=== PATIENT | female | born 1950 | race Caucasian/White ===

== ENCOUNTER 2017-06-03 17:19 | Observation (INO) | payer OTHER ==
[~2017-06-03] VITALS: Ht 154.9 cm; Wt 100.4 kg
[~2017-06-03 17:19] MED LIST: ALLO100T PO; ASPI81TA3 PO; ATOR40TA68 PO; CALC1TAB92 PO; FERR325T82 PO; INSU300I SQ; LIRA0.6P2 SQ; MECL25TA2 PO; NIFE30TA2 PO; OMEG-135 PO
[2017-06-03 23:37] LABS: BASOPHILS % 0.1 % (0.0-2.0); EOSINOPHILS # 0.2 10^3/ul (0.0-0.5); EOSINOPHILS % 2.9 % (0.0-7.0); HEMATOCRIT 32.3 % (37.0-47.0); HEMOGLOBIN 10.4 g/dl (12.0-16.0); LYMPHOCYTES # 1.4 10^3/ul (0.8-2.9); MEAN CORPUSCULAR HEMOGLOBIN 29.8 pg (29.0-33.0); MEAN CORPUSCULAR HGB CONC 32.2 g/dl (32.0-37.0); MEAN CORPUSCULAR VOLUME 92.6 fl (82.0-101.0); MEAN PLATELET VOLUME 11.7 fl (7.4-10.4); MONOCYTE # 0.5 10^3/ul (0.3-0.9); MONOCYTES % 5.9 % (0.0-11.0); NEUTROPHIL # 5.8 10^3/ul (1.6-7.5); NEUTROPHILS % 72.7 % (39.0-77.0); PLATELET COUNT 152 10^3/UL (140-415); RED BLOOD COUNT 3.49 10^6/ul (4.20-5.40); RED CELL DISTRIBUTION WIDTH 14.2 % (11.5-14.5); WHITE BLOOD COUNT 7.9 10^3/ul (4.8-10.8)
--- NOTE | 2017-06-03 23:38 | RADRPT ---
PROCEDURE: CT Brain without contrast. CLINICAL INDICATION: Headache. TECHNIQUE: A CT of the brain was performed utilizing axial sections from the skull base through th e vertex without contrast. Multiplanar re-formations were generated. Images were reviewed on a high- resolution PACS workstation. CTDIvol: 43.05 mGy. DLP: 720.23 mGy-cm. One or more of the following dose reduction techniques were used: - Automated exposure control. - Adjustment of the mA and/or kV according to patient size. - Use of iterative reconstruction technique. COMPARISON: None available FINDINGS: There is mild generalized volume loss. No hydrocephalus is seen. There is no mass effect. No acute intracranial hemorrhage is identified. There is no extra-axial collection. No CT evidence of acute infarction is identified. Small chronic infarction is identified in the inferior left cerebellar he misphere. There is patchy low attenuation in the supratentorial white matter, a nonspecific finding which most likely represents the sequela of mild chronic microvascular ischemic disease. There are mild atherosclerotic arterial calcifications. There is no significant mucosal disease in the paranasal sinuses. The visualized mastoid air cells a re clear. The ossesous structures are unremarkable. The extracranial soft tissues are unremarkable. IMPRESSION: 1. No acute intracranial pathology. 2. Mild generalized volume loss. 3. Mild chronic microvascular ischemic changes. 4. Small chronic infarction in the inferior left cerebellar hemisphere. 5. Atherosclerotic arterial calcifications. RPTAT: HTAR .Osvaldo Taylor MD, MD Date Time Electronically viewed and signed by .Osvaldo Taylor MD, MD on 06/03/2017 23:38 .R/
--- NOTE | 2017-06-03 23:40 | RADRPT ---
PROCEDURE: Chest. CLINICAL INDICATION: Chest pain. TECHNIQUE: Single frontal view of the chest was obtained. COMPARISON: 06/25/2016. FINDINGS: The cardiac silhouette is within normal limits. The aortic arch is unremarkable. There is no focal consolidation, vascular congestion or pleural effusion. There is no pneumothorax. IMPRESSION: No evidence for active cardiopulmonary disease. .Praneeth White MD, Date Time Electronically viewed and signed by .Praneeth White MD, on 06/03/2017 23:40 .T/
[2017-06-03 23:59] LABS: INR 1.02; PROTIME 13.4 Sec (12.2-14.2)
[2017-06-04] VITALS (13 sets, daily range): BP systolic 105–168; BP diastolic 59–70; PULSE 71–76; RESP 19–20; Ht 154.9 cm; Wt 100.4 kg
[2017-06-04] LABS: PARTIAL THROMBOPLASTIN TIME 26.9 Sec (25.0-35.0)
[2017-06-04 00:02] LABS: ALANINE AMINOTRANSFERASE 41 IU/L (13-69); ALBUMIN 3.8 g/dl (3.3-4.9); ALBUMIN/GLOBULIN RATIO 1.11; ALKALINE PHOSPHATASE 77 IU/L (42-121); ANION GAP 19 (8-16); ASPARTATE AMINO TRANSFERASE 22 IU/L (15-46); BILIRUBIN,INDIRECT 0.2 mg/dl (0-1.1); BILIRUBIN,TOTAL 0.2 mg/dl (0.2-1.3); BLOOD UREA NITROGEN 43 mg/dl (7-20); CALCIUM 8.6 mg/dl (8.4-10.2); CARBON DIOXIDE 29 mmol/L (21-31); CHLORIDE 102 mmol/L (97-110); GLUCOSE 187 mg/dl (70-220); POTASSIUM 3.3 mmol/L (3.5-5.1); SODIUM 147 mmol/L (135-144); TOTAL PROTEIN 7.2 g/dl (6.1-8.1)
[2017-06-04 00:23] LABS: TROPONIN-I < 0.012 ng/ml (0.00-0.12)
[2017-06-04] MEDS ORDERED: morphine 2 MG INJ IV PRN (02:00)
[2017-06-04] MEDS ORDERED: ONDANSETRON 4 MG INJ IV PRN (02:00)
--- NOTE | 2017-06-04 02:06 | ERA ---
ER Documentation Chief Complaint Date/Time DATE: 06/04/17 TIME: 02:05 Chief Complaint bilat hand numbness and toung numbness x 3 weeks HPI 37-year-old female comes in with generalized weakness getting progressively worse over the past 2 days. Also complaining of bilateral hand numbness and tongue numbness. Patient also says she has been falling more frequently at home and does not feel stable on her feet. Denies any recent or remote head trauma. Denies any focal neurologic complaints otherwise. No visual acuity changes. ROS All systems reviewed and are negative except as per history of present illness. Medications Home Meds Active Scripts Liraglutide (Victoza 3-Severiano) 0.6 Mg/0.1 Ml Pen.injctr, 1.8 MG SQ DAILY for 30 Days, #3 SYR 5 Refills Prov:ADAL ARCE MD 06/28/16 Insulin Glargine,Hum.rec.anlog (Daniella Solostar) 300 Unit/1 Ml Insuln.pen, 32 UNIT SQ QHS for 30 Days, #1 BOX 5 Refills Prov:ADAL ARCE MD 06/28/16 Nifedipine (Procardia Xl) 30 Mg Tab.er.24, 30 MG PO DAILY for 30 Days, #30 TAB 5 Refills Prov:ADAL ARCE MD 06/28/16 Meclizine Hcl* (Antivert*) 25 Mg Tablet, 25 MG PO TID Y for VERTIGO for 30 Days , #90 TAB 5 Refills Prov:ADAL ARCE MD 06/28/16 Atorvastatin* (Atorvastatin*) 40 Mg Tablet, 40 MG PO HS for 30 Days, #30 TAB 5 Refills Prov:ADAL ARCE MD 06/28/16 Allopurinol* (Allopurinol*) 100 Mg Tablet, 100 MG PO DAILY for 30 Days, #30 TAB 5 Refills Prov:ADAL ARCE MD 06/28/16 Reported Medications Ferrous Sulfate (CAMPBELL-TIME) 325 Mg Tablet, 325 MG PO DAILY 05/13/14 Aspirin (Aspirin) 81 Mg Chew, 81 MG PO DAILY, TAB.CHEW 05/13/14 Calcium Carbonate/Vitamin D3 (Oyster Shell 500 Mg + Vit D Tb) 1 Tab Tablet, 1 TAB PO DAILY 05/13/14 Fish Oil* (Fish Oil*) 1,000 Mg Cap, 1000 MG PO BID, CAP 7/18/14 Allergies Allergies: Coded Allergies: No Known Allergy (Unverified , 06/03/17) PMhx/Soc History of Surgery: No Anesthesia Reaction: No Hx Neurological Disorder: No Hx Respiratory Disorders: No Hx Cardiac Disorders: Yes (HTN; HIGH CHOLESTEROL) Hx Psychiatric Problems: No Hx Miscellaneous Medical Probl: Yes (HTN,CKD,GI BLEED, INCREASED CHOLESTEROL) Hx Alcohol Use: No Hx Substance Use: No Hx Tobacco Use: No Smoking Status: Never smoker Physical Exam Vitals Vital Signs Date Time Temp Pulse Resp B/P Pulse Ox O2 Delivery O2 Flow Rate FiO2 06/04/17 01:59 71 17 121/55 94 Room Air 06/04/17 00:15 74 17 118/52 96 Room Air 06/03/17 22:25 80 17 133/56 96 Room Air 06/03/17 17:24 99.7 77 20 124/60 93 Physical Exam Const: [] Head: Atraumatic Eyes: Normal Conjunctiva ENT: Normal External Ears, Nose and Mouth. Neck: Full range of motion..~ No meningismus. Resp: Clear to auscultation bilaterally Cardio: Regular rate and rhythm, no murmurs Abd: Soft, non tender, non distended. Normal bowel sounds Skin: No petechiae or rashes Back: No midline or flank tenderness Ext: No cyanosis, or edema Neur: Awake and alert. Mild ataxia noted on the heel to rushing and finger to nose. Psych: Normal Mood and Affect Result Diagram: 06/03/17 2310 06/03/17 2310 Results 24 hrs Laboratory Tests Test 06/03/17 20:17 06/03/17 23:10 Bedside Glucose 173mg/dL White Blood Count 7.910^3/ul Red Blood Count 3.4910^6/ul Hemoglobin 10.4g/dl Hematocrit 32.3% Mean Corpuscular Volume 92.6fl Mean Corpuscular Hemoglobin 29.8pg Mean Corpuscular Hemoglobin Concent 32.2g/dl Red Cell Distribution Width 14.2% Platelet Count 56233^3/UL Mean Platelet Volume 11.7fl Neutrophils % 72.7% Lymphocytes % 18.0% Monocytes % 5.9% Eosinophils % 2.9% Basophils % 0.1% Nucleated Red Blood Cells % 0.0/100WBC Neutrophils # 5.810^3/ul Lymphocytes # 1.410^3/ul Monocytes # 0.510^3/ul Eosinophils # 0.210^3/ul Basophils # 0.010^3/ul Nucleated Red Blood Cells # 0.010^3/ul Prothrombin Time 13.4Sec Prothrombin Time Ratio 1.0 INR International Normalized Ratio 1.02 Activated Partial Thromboplast Time 26.9Sec Sodium Level 147mmol/L Potassium Level 3.3mmol/L Chloride Level 102mmol/L Carbon Dioxide Level 29mmol/L Anion Gap 19 Blood Urea Nitrogen 43mg/dl Creatinine 1.90mg/dl Glucose Level 187mg/dl Lactic Acid Level 1.4mmol/L Calcium Level 8.6mg/dl Total Bilirubin 0.2mg/dl Direct Bilirubin 0.00mg/dl Indirect Bilirubin 0.2mg/dl Aspartate Amino Transf (AST/SGOT) 22IU/L Alanine Aminotransferase (ALT/SGPT) 41IU/L Alkaline Phosphatase 77IU/L Troponin I < 0.012ng/ml Total Protein 7.2g/dl Albumin 3.8g/dl Globulin 3.40g/dl Albumin/Globulin Ratio 1.11 Procedures/MDM EKG: Rate/Rhythm: Normal Sinus Rhythm QRS, ST, T-waves: No changes consistent w/ acute ischemia Impression: No evidence of ischemia or arrhythmia Chest X-ray 1V Interpreted by me: Soft Tissue: No acute abnormalities Bones: No acute abnormalities Mediastinum/Cardiac Silhouette/Lungs: No acute abnormalities Medical decision-makin-year-old female with evidence of ataxia generalized weakness. Patient will be admitted to Dr. Marquez for further evaluation and management. Departure Diagnosis: Primary Impression: Ataxia Additional Impression: Weakness Condition: Serious TERE BERNAL Jun 04, 2017 02:06
[2017-06-04] MEDS ORDERED: GLUCOSE GEL 15 GRAM TUBE BUCCAL PRN (02:30)
[2017-06-04] MEDS ORDERED: GLUCAGON 1 MG INJ IM PRN (02:30)
[2017-06-04] MEDS ORDERED: GLUCOSE GEL 15 GRAM TUBE PO PRN ×2 (02:30)
[2017-06-04] MEDS ORDERED: DEXTROSE 50% 50 ML SYRINGE IV PRN ×2 (02:30)
[2017-06-04] MEDS ORDERED: INSULIN ASPART [NOVOLOG] 3 ML PEN SC SCH (05:00)
[2017-06-04] MEDS: ACCU-CHEK XX SCH (05:13)
[2017-06-04] MEDS: POTASSIUM CHLORIDE (SR) 20 MEQ TAB PO SCH ×2 (05:15→07:14)
[2017-06-04] MEDS: SOD CHLORIDE 0.45% 1,000 ML IV SCH ×3 (05:23→21:06)
[2017-06-04 07:23] LABS: ADD UMIC YES; UR ASCORBIC ACID NEGATIVE (NEGATIVE); UR BACTERIA FEW /HPF (NONE SEEN); UR BILIRUBIN (Dip) NEGATIVE (NEGATIVE); UR BLOOD (Dip) NEGATIVE (NEGATIVE); UR CLARITY SLIGHTLY CLOUDY (CLEAR); UR COLOR YELLOW (YELLOW); UR GLUCOSE (Dip) 1+ mg/dL (NEGATIVE); UR KETONES (Dip) NEGATIVE (NEGATIVE); UR LEUKOCYTE ESTERASE (Dip) 1+ Leu/ul (NEGATIVE); UR NITRITE (Dip) NEGATIVE (NEGATIVE); UR RBC 2 /HPF (0-5); UR SPECIFIC GRAVITY (Dip) 1.014 (1.003-1.030); UR SQUAMOUS EPITHELIAL CELL FEW /HPF (FEW); UR TOTAL PROTEIN (Dip) NEGATIVE (NEGATIVE); UR UROBILINOGEN (Dip) NEGATIVE (NEGATIVE)
[2017-06-04] MEDS: INSULIN ASPART [NOVOLOG] 3 ML PEN SC SCH ×4 (08:00→21:00)
[2017-06-04] MEDS: NIFEdipine (XL) 30 MG TAB PO SCH (08:42)
[2017-06-04] MEDS: ALLOPURINOL 100 MG TAB PO SCH (08:42)
[2017-06-04] MEDS: CALCIUM/VITAMIN D (500/200) TAB PO SCH (08:42)
[2017-06-04] MEDS: ASPIRIN 81 MG TAB PO SCH (08:42)
[2017-06-04] MEDS: FERROUS SULFATE (EC) 325 MG TAB PO SCH (08:42)
[2017-06-04] MEDS: FISH OIL 1,000 MG CAP PO SCH ×2 (08:42→21:00)
[2017-06-04] MEDS ORDERED: INSULIN GLARGINE [LANtus] 3 ML PEN SC SCH (09:00)
[2017-06-04] MEDS: INSULIN GLARGINE [LANtus] 3 ML PEN SC SCH ×2 (09:00→12:04)
[2017-06-04] MEDS ORDERED: NON-FORMULARY/PATIENT OWN MED (Liraglutide (Victoza 3-Pak) 1.8 MG) SQ SCH (09:00)
[2017-06-04] MEDS: [UNRECOGNIZED DRUG - REMARK] XX SCH ×2 (09:52→16:32)
[2017-06-04] MEDS: ACETAMINOPHEN 325 MG TAB PO PRN (12:08)
--- NOTE | 2017-06-04 14:59 | HP ---
Date/Time of Note Date/Time of Note DATE: 06/04/17 TIME: 14:27 Assessment/Plan VTE Prophylaxis VTE Prophylaxis Intervention: SCD's Lines/Catheters IV [facility] (from [facility] Peripheral IV Urinary Cath still in place: No Assessment/Plan Assessment/Plan 67-year-old female with: 1. Extremity weakness upper and lower, questionable gait issues, old small left cerebellar infarct on CAT scan of the head. Patient admitted for rule out acute CVA, MRI of the brain pending. Based on her symptoms also MRI of the cervical/thoracic/lumbar spine has been ordered overnight. Check TSH, free T4 Continue aspirin, statins, blood pressure control, blood glucose control Continue physical therapy 2. Diabetes mellitus: Check hemoglobin A1c, continue current insulin regimen, will adjust as needed 3. 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 Potassium was repleted overnight, check BMP today. 4. Hypertension: Continue outpatient medications 5. Hyperlipidemia: Statin therapy, check fasting lipid panel in a.m. 6. Chronic anemia: Monitor hemoglobin level, continue iron sulfate supplements. 7. Morbid obesity: Lifestyle modification Prophylaxis: Pepcid for GI prophylaxis, SCDs for DVT prophylaxis Disposition: Patient on observation while awaiting for MRI results, physical therapy to be continued, follow-up on laboratory data in a.m. HPI/ROS Admit Date/Time Admit Date/Time Jun 04, 2017 at 02:02 Hx of Present Illness Chief complaint: Weakness History of presenting illness: This is a 67-year-old female with a history of diabetes mellitus, morbid obesity, chronic anemia, chronic kidney disease probably stage II-III, hyperlipidemia, hypertension apparently with ongoing history of chronic dizziness of this for the past year and occasional who presented in the emergency department with complaint of increasing upper extremity and lower extremity weakness for the past month. Patient reports that he has gotten much worse and this past Friday she did fall due to severe weakness of her lower extremities. She denies any fevers or chills, no nausea or vomiting, no diarrhea or constipation. She reports dysuria and urinary frequency. She saw a microfiche camera operator couple of months ago for evaluation for chronic kidney disease and is due to follow-up with nephrology in 4 months. She denies any previous history of cerebrovascular disease or accidents. She denies any previous coronary artery disease. She reports these episodes of numbness especially of her feet and hands that could be consistent with neuropathy related to diabetes versus neuropathy. MRIs of her cervical/thoracic/lumbar spine pending along with MRI of the head. Additional laboratory workup will also be done. She did ambulate with physical therapy this morning a little bit and was fairly steady but still complaining of numbness and loss of balance. She is admitted to telemetry observation. ROS Constitutional: fatigue Eyes: other (Blurry vision occasionally) ENT: no complaints Respiratory: no complaints Cardiovascular: no complaints Gastrointestinal: no complaints Genitourinary: dysuria, other (Frequency) Musculoskeletal: no complaints Skin: no complaints Neurologic: focal-weakness (Upper extremities, lower extremities) Endocrine: no complaints Psychological: no complaints Immunologic: no complaints PMH/Family/Social Past Medical History Chronic anemia likely related to chronic kidney Medical History: diabetes, high cholesterol, hypertension, renal disease (CKD 2 -3) Past Surgical History Past Surgical Hx: cholecystectomy, other (Status post hysterectomy) Family History Significant Family History: no pertinent family hx Social History Alcohol Use: none Smoking Status: Former smoker (At least 40 years ago) Drug Use: none Exam/Review of Systems Vital Signs Vitals Vital Signs Date Time Temp Pulse Resp B/P Pulse Ox O2 Delivery O2 Flow Rate FiO2 06/04/17 13:32 76 06/04/17 11:43 97.9 19 151/70 96 06/04/17 04:37 Room Air Intake and Output 06/03/17 06/03/17 06/04/17 15:00 23:00 07:00 Intake Total 390 ml Balance 390 ml Exam Constitutional: alert, oriented, other (Obese), well developed Respiratory: clear to auscultation, normal air movement Cardiovascular: nl pulses, regular rate and rhythm Gastrointestinal: non-tender, soft Musculoskeletal: nl extremities to inspection Extremities: normal pulses, other (No edema, clubbing or cyanosis) 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, focal weakness (Weakness upper and lower extremity 4 out of 5), nl mental status, nl speech Labs Result Diagram: 06/03/17 2310 06/03/17 2310 Medications Medications Home medications: See medication reconciliation on admission Current Medications Diagnostic Test (Pha) (Accu-Chek) 1 ea XX Last administered on 06/04/17t 05: 13; Admin Dose 1 EA; Start 06/04/17 at 02:00 Acetaminophen (Tylenol Tab) 650 mg Q4H PRN PO pain/fever Last administered on 12:08; Admin Dose 650 MG; Start 06/04/17 at 02:00 Ondansetron HCl (Zofran Inj) 4 mg Q4H PRN IV nausea; Start 06/04/17 at 02:00 Morphine Sulfate 2 mg 2 mg Q2H PRN IV pain; Start 06/04/17 at 02:00 Sodium Chloride (1/2 NS) 1,000 ml @ 100 mls/hr Q10H IV Last administered on 05:23; Admin Dose 100 MLS/HR; Start 06/04/17 at 02:00 Allopurinol (Zyloprim) 100 mg DAILY PO Last administered on 06/04/17 08:42; Admin Dose 100 MG; Start 06/04/17 at 09:00 Aspirin (Aspirin) 81 mg DAILY PO Last administered on 06/04/17 08:42; Admin Dose 81 MG; Start 06/04/17 at 09:00 Atorvastatin Calcium (Lipitor) 40 mg HS PO ; Start 06/04/17 at 21:00 Calcium/Vitamin D (Oyster Shell/ Vit-D (500/200)) 1 tab DAILY PO Last administered on 06/04/17 08:42; Admin Dose 1 TAB; Start 06/04/17 at 09:00 Ferrous Sulfate (Ferrous Sulfate (Ec)) 325 mg DAILY PO Last administered on 06/04 08:42; Admin Dose 325 MG; Start 06/04/17 at 09:00 Fish Oil (Fish Oil) 1,000 mg BID PO Last administered on 06/04/17 08:42; Admin Dose 1,000 MG; Start 06/04/17 at 09:00 Nifedipine (Procardia Xl) 30 mg DAILY PO Last administered on 06/04/17 08:42; Admin Dose 30 MG; Start 06/04/17 at 09:00 Miscellaneous Information 1.8 mg DAILY SQ ; Start 06/04/17 at 09:00; Status UNV Miscellaneous Information 1 ea NOTE XX ; Start 06/04/17 at 02:30 Glucose (Glutose) 15 gm Q15M PRN PO DECREASED GLUCOSE; Start 06/04/17 at 02:30 Glucose (Glutose) 22.5 gm Q15M PRN PO DECREASED GLUCOSE; Start 06/04/17 at 02:30 Dextrose (D50w Syringe) 25 ml Q15M PRN IV DECREASED GLUCOSE; Start 06/04/17 at 02:30 Dextrose (D50w Syringe) 50 ml Q15M PRN IV DECREASED GLUCOSE; Start 06/04/17 at 02:30 Glucagon (Glucagen) 1 mg Q15M PRN IM DECREASED GLUCOSE; Start 06/04/17 at 02:30 Glucose (Glutose) 15 gm Q15M PRN BUCCAL DECREASED GLUCOSE; Start 06/04/17 at 02: 30 Miscellaneous Information (*Order Clarification Bulletin) MEDICATION REQUIRES CLARIFICATI... Q8H XX Last administered on 06/04/17 09:52; Admin Dose 1 EA; Start 06/04/17 at 09:00 Insulin Glargine (Lantus) 24 unit DAILY SC Last administered on 06/04/17 12:04 ; Admin Dose 24 UNIT; Start 06/04/17 at 08:00 Procedures Procedures PROCEDURE: CT Brain without contrast. CLINICAL INDICATION: Headache. TECHNIQUE: A CT of the brain was performed utilizing axial sections from the skull base through the vertex without contrast. Multiplanar re-formations were generated. Images were reviewed on a high-resolution PACS workstation. CTDIvol: 43.05 mGy. DLP: 720.23 mGy-cm. One or more of the following dose reduction techniques were used: - Automated exposure control. - Adjustment of the mA and/or kV according to patient size. - Use of iterative reconstruction technique. COMPARISON: None available FINDINGS: There is mild generalized volume loss. No hydrocephalus is seen. There is no mass effect. No acute intracranial hemorrhage is identified. There is no extra- axial collection. No CT evidence of acute infarction is identified. Small chronic infarction is identified in the inferior left cerebellar hemisphere. There is patchy low attenuation in the supratentorial white matter, a nonspecific finding which most likely represents the sequela of mild chronic microvascular ischemic disease. There are mild atherosclerotic arterial calcifications. There is no significant mucosal disease in the paranasal sinuses. The visualized mastoid air cells are clear. The ossesous structures are unremarkable. The extracranial soft tissues are unremarkable. IMPRESSION: 1. No acute intracranial pathology. 2. Mild generalized volume loss. 3. Mild chronic microvascular ischemic changes. 4. Small chronic infarction in the inferior left cerebellar hemisphere. 5. Atherosclerotic arterial calcifications. PROCEDURE: Chest. CLINICAL INDICATION: Chest pain. TECHNIQUE: Single frontal view of the chest was obtained. COMPARISON: 06/25/2016. FINDINGS: The cardiac silhouette is within normal limits. The aortic arch is unremarkable. There is no focal consolidation, vascular congestion or pleural effusion. There is no pneumothorax. IMPRESSION: No evidence for active cardiopulmonary disease. .Praneeth White MD, Date Time Electronically viewed and signed by .Praneeth White MD, MD on 06/03/2017 23:40 IVIS MIN Jun 04, 2017 14:38
[2017-06-04 15:02] LABS: CALCIUM 8.7 mg/dl (8.4-10.2); CREATININE 1.22 mg/dl (0.44-1.00); MAGNESIUM 1.4 mg/dl (1.7-2.5); PHOSPHORUS 2.5 mg/dl (2.5-4.9); POTASSIUM 4.1 mmol/L (3.5-5.1)
[2017-06-04] MEDS: FAMOTIDINE 20 MG TAB PO SCH (16:35)
[2017-06-04] MEDS: ATORVASTATIN 40 MG TAB PO SCH (21:00)
[2017-06-05] VITALS (11 sets, daily range): BP systolic 117–142; BP diastolic 56–65; PULSE 67–75; RESP 18–20
[2017-06-05] MEDS: [UNRECOGNIZED DRUG - REMARK] XX SCH ×2 (01:36→08:40)
[2017-06-05] MEDS: ACCU-CHEK XX SCH (01:37)
[2017-06-05] MEDS: SOD CHLORIDE 0.45% 1,000 ML IV SCH ×2 (06:16→16:53)
[2017-06-05 07:35] LABS: BASOPHILS % 0.4 % (0.0-2.0); EOSINOPHILS # 0.3 10^3/ul (0.0-0.5); EOSINOPHILS % 6.3 % (0.0-7.0); HEMATOCRIT 29.5 % (37.0-47.0); HEMOGLOBIN 9.4 g/dl (12.0-16.0); LYMPHOCYTES # 2.1 10^3/ul (0.8-2.9); LYMPHOCYTES % 43.4 % (15.0-51.0); MEAN CORPUSCULAR HEMOGLOBIN 29.5 pg (29.0-33.0); MEAN CORPUSCULAR HGB CONC 31.9 g/dl (32.0-37.0); MEAN CORPUSCULAR VOLUME 92.5 fl (82.0-101.0); MEAN PLATELET VOLUME 11.7 fl (7.4-10.4); MONOCYTE # 0.4 10^3/ul (0.3-0.9); MONOCYTES % 7.4 % (0.0-11.0); NEUTROPHILS % 42.1 % (39.0-77.0); PLATELET COUNT 138 10^3/UL (140-415); RED BLOOD COUNT 3.19 10^6/ul (4.20-5.40); RED CELL DISTRIBUTION WIDTH 14.2 % (11.5-14.5); WHITE BLOOD COUNT 4.8 10^3/ul (4.8-10.8)
[2017-06-05 07:45] LABS: CALCIUM 8.4 mg/dl (8.4-10.2); CREATININE 1.1 mg/dl (0.44-1.00); POTASSIUM 3.9 mmol/L (3.5-5.1)
[2017-06-05 07:52] LABS: MAGNESIUM 1.3 mg/dl (1.7-2.5); PHOSPHORUS 2.6 mg/dl (2.5-4.9)
[2017-06-05 08:15] LABS: CHOL/HDL RATIO 4.3 RATIO
[2017-06-05] MEDS: ASPIRIN 81 MG TAB PO SCH (08:39)
[2017-06-05] MEDS: ACETAMINOPHEN 325 MG TAB PO PRN (08:39)
[2017-06-05] MEDS: FAMOTIDINE 20 MG TAB PO SCH (08:39)
[2017-06-05] MEDS: ALLOPURINOL 100 MG TAB PO SCH (08:39)
[2017-06-05] MEDS: CALCIUM/VITAMIN D (500/200) TAB PO SCH (08:39)
[2017-06-05] MEDS: FISH OIL 1,000 MG CAP PO SCH ×2 (08:39→20:24)
[2017-06-05] MEDS: NIFEdipine (XL) 30 MG TAB PO SCH (08:39)
[2017-06-05] MEDS: FERROUS SULFATE (EC) 325 MG TAB PO SCH (08:39)
[2017-06-05] MEDS: INSULIN ASPART [NOVOLOG] 3 ML PEN SC SCH ×4 (08:44→20:27)
[2017-06-05] MEDS: INSULIN GLARGINE [LANtus] 3 ML PEN SC SCH (08:47)
--- NOTE | 2017-06-05 11:34 | PN ---
Date/Time of Note Date/Time of Note DATE: 06/05/17 TIME: 11:24 Assessment/Plan VTE Prophylaxis VTE Prophylaxis Intervention: SCD's Lines/Catheters IV Catheter Type (from Nrs): Peripheral IV Urinary Cath still in place: No Assessment/Plan Assessment/Plan 67-year-old female with: 1. Extremity weakness upper and lower, questionable gait issues, old small left cerebellar infarct on CAT scan of the head. Patient admitted for rule out acute CVA, MRI of the brain pending. Based on her symptoms also MRI of the cervical/thoracic/lumbar spine has been ordered overnight and still pending as of this morning, at this point discharge planning is pending MRIs. TSH, free T4 within normal Continue aspirin, statins, blood pressure control, blood glucose control Continue physical therapy 2. Diabetes mellitus: A1c 7.1, continue current insulin regimen, will adjust as needed 3. 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 Continue IV fluids, recheck BMP tomorrow, repleting magnesium, recheck electrolytes in a.m. 4. Hypertension: Continue outpatient medications 5. Hyperlipidemia: Continue statin. 6. Chronic anemia: Stable H&H, continue iron sulfate supplements. 7. Morbid obesity: Lifestyle modification Prophylaxis: Pepcid for GI prophylaxis, SCDs for DVT prophylaxis Disposition: Discharge planning pending MRIs, continue physical therapy. Subjective 24 Hr Interval Summary Free Text/Dictation Patient feels much better today, per nurse's note she has been ambulatory steady to the restroom, physical therapy seen patient. MRIs ordered are still pending. Otherwise workup within normal so far. Patient requesting a dietary consult. 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, nl mental status, nl speech, nl strength Results Result Diagram: 06/05/17 0637 06/05/17 0637 Results 24 hrs Laboratory Tests Test 06/04/17 12:00 06/04/17 14:27 06/04/17 14:50 06/04/17 16:33 Bedside Glucose 187 137 Sodium Level 144 Potassium Level 4.1 Chloride Level 103 Carbon Dioxide Level 28 Anion Gap 17 H Blood Urea Nitrogen 30 #H Creatinine 1.22 H Glucose Level 180 Calcium Level 8.7 Phosphorus Level 2.5 Magnesium Level 1.4 L Thyroid Stimulating Hormone (TSH) 0.202 L Free Thyroxine 1.13 Test 06/04/17 21:04 06/05/17 06:37 06/05/17 08:37 Bedside Glucose 159 147 White Blood Count 4.8 # Red Blood Count 3.19 L Hemoglobin 9.4 L Hematocrit 29.5 L Mean Corpuscular Volume 92.5 Mean Corpuscular Hemoglobin 29.5 Mean Corpuscular Hemoglobin Concent 31.9 L Red Cell Distribution Width 14.2 Platelet Count 138 L Mean Platelet Volume 11.7 H Neutrophils % 42.1 Lymphocytes % 43.4 Monocytes % 7.4 Eosinophils % 6.3 Basophils % 0.4 Nucleated Red Blood Cells % 0.0 Neutrophils # 2.0 Lymphocytes # 2.1 Monocytes # 0.4 Eosinophils # 0.3 Basophils # 0.0 Nucleated Red Blood Cells # 0.0 Sodium Level 146 H Potassium Level 3.9 Chloride Level 105 Carbon Dioxide Level 28 Anion Gap 17 H Blood Urea Nitrogen 23 H Creatinine 1.10 H Glucose Level 152 Hemoglobin A1c 7.1 H Calcium Level 8.4 Phosphorus Level 2.6 Magnesium Level 1.3 L Triglycerides Level 217 H Cholesterol Level 104 LDL Cholesterol, Calculated 37 HDL Cholesterol 24 L Cholesterol/HDL Ratio 4.3 Medications Medications Current Medications Diagnostic Test (Pha) (Accu-Chek) 1 ea 02 XX Last administered on 06/04/17 05: 13; Admin Dose 1 EA; Start 06/04/17 at 02:00 Acetaminophen (Tylenol Tab) 650 mg Q4H PRN PO pain/fever Last administered on 08:39; Admin Dose 650 MG; Start 06/04/17 at 02:00 Ondansetron HCl (Zofran Inj) 4 mg Q4H PRN IV nausea; Start 06/04/17 at 02:00 Morphine Sulfate 2 mg 2 mg Q2H PRN IV pain; Start 06/04/17 at 02:00 Sodium Chloride (1/2 NS) 1,000 ml @ 100 mls/hr Q10H IV Last administered on 06:16; Admin Dose 100 MLS/HR; Start 06/04/17 at 02:00 Allopurinol (Zyloprim) 100 mg DAILY PO Last administered on 06/05/17 08:39; Admin Dose 100 MG; Start 06/04/17 at 09:00 Aspirin (Aspirin) 81 mg DAILY PO Last administered on 06/05/17 08:39; Admin Dose 81 MG; Start 06/04/17 at 09:00 Atorvastatin Calcium (Lipitor) 40 mg HS PO Last administered on 06/04/17 21:00 ; Admin Dose 40 MG; Start 06/04/17 at 21:00 Calcium/Vitamin D (Oyster Shell/ Vit-D (500/200)) 1 tab DAILY PO Last administered on 06/05/17 08:39; Admin Dose 1 TAB; Start 06/04/17 at 09:00 Ferrous Sulfate (Ferrous Sulfate (Ec)) 325 mg DAILY PO Last administered on 08:39; Admin Dose 325 MG; Start 06/04/17 at 09:00 Fish Oil (Fish Oil) 1,000 mg BID PO Last administered on 06/05/17 08:39; Admin Dose 1,000 MG; Start 06/04/17 at 09:00 Nifedipine (Procardia Xl) 30 mg DAILY PO Last administered on 06/05/17 08:39; Admin Dose 30 MG; Start 06/04/17 at 09:00 Miscellaneous Information 1.8 mg DAILY SQ ; Start 06/04/17 at 09:00; Status UNV Miscellaneous Information 1 ea NOTE XX ; Start 06/04/17 at 02:30 Glucose (Glutose) 15 gm Q15M PRN PO DECREASED GLUCOSE; Start 06/04/17 at 02:30 Glucose (Glutose) 22.5 gm Q15M PRN PO DECREASED GLUCOSE; Start 06/04/17 at 02:30 Dextrose (D50w Syringe) 25 ml Q15M PRN IV DECREASED GLUCOSE; Start 06/04/17 at 02:30 Dextrose (D50w Syringe) 50 ml Q15M PRN IV DECREASED GLUCOSE; Start 06/04/17 at 02:30 Glucagon (Glucagen) 1 mg Q15M PRN IM DECREASED GLUCOSE; Start 06/04/17 at 02:30 Glucose (Glutose) 15 gm Q15M PRN BUCCAL DECREASED GLUCOSE; Start 06/04/17 at 02: 30 Miscellaneous Information (*Order Clarification Bulletin) MEDICATION REQUIRES CLARIFICATI... Q8H XX Last administered on 06/05/17 08:40; Admin Dose 1 EA; Start 06/04/17 at 09:00 Insulin Glargine (Lantus) 24 unit DAILY SC Last administered on 06/05/17 08:47 ; Admin Dose 24 UNIT; Start 06/04/17 at 08:00 Famotidine (Pepcid) 20 mg DAILY PO Last administered on 06/05/17 08:39; Admin Dose 20 MG; Start 06/04/17 at 16:00 IVIS MIN Jun 05, 2017 11:34
[2017-06-05] MEDS ORDERED: MAGNESIUM SULFATE 4 GM/100 ML 100 ML IVPB ONE (14:00)
[2017-06-05] MEDS: ATORVASTATIN 40 MG TAB PO SCH (20:24)
[2017-06-06] VITALS (10 sets, daily range): BP systolic 126–149; BP diastolic 58–82; PULSE 66–73; RESP 16–20
[2017-06-06] MEDS: ACETAMINOPHEN 325 MG TAB PO PRN ×2 (00:30→08:44)
[2017-06-06] MEDS: ACCU-CHEK XX SCH (01:56)
[2017-06-06] MEDS: SOD CHLORIDE 0.45% 1,000 ML IV SCH (04:33)
--- NOTE | 2017-06-06 06:40 | RADRPT ---
PROCEDURE: MR Brain without contrast. CLINICAL INDICATION: Numbness. Evaluate for possible demyelinating disease. TECHNIQUE: Sagittal and axial T1 weighted, axial T2 weighted, coronal GRE, axial diffusion weighte d with ADC mapping, and axial FLAIR imaging without contrast. COMPARISON: CT from 06/03/2017 FINDINGS: No diffusion weighted abnormalities are seen to suggest the presence of acute ischemia or recent inf arct. No hypointense signal abnormalities are seen on the GRE images to suggest the presence of blo od degradation products. There is no evidence of intracranial hemorrhage, mass effect, or midline sh ift. No extra-axial fluid collections are seen. There is minimal cortical atrophy without marked chr onic microvascular ischemic change. There is encephalomalacia in the left cerebellar hemisphere as seen previously, most likely from old infarct. No mass or midline shift is seen. No extraaxial flu id collection is seen. Normal flow voids are visible in the proximal intracranial arteries and dural sinuses, indicating patency. There is mild mucoperiosteal thickening of the ethmoids. Probable tapan ateral cataract surgery. "Empty" sella turcica is incidentally noted.. IMPRESSION: Old left cerebellar infarct. No definite acute intracranial abnormality. There are no findings to suggest demyelinating disease. RPTAT: [facility] Physician Rita Date Time Electronically viewed and signed by Physician Rita on 06/06/2017 04:45 MAURILIO/
--- NOTE | 2017-06-06 07:24 | RADRPT ---
PROCEDURE: MR Cervical Spine noncontrast. CLINICAL INDICATION: Numbness. TECHNIQUE: Multiplanar multisequence noncontrast MRI of the cervical spine was performed. COMPARISON: There are no similar studies submitted for comparison. FINDINGS: There is normal cervical lordosis. The vertebral body heights are maintained. There is normal alignment. There is no destructive osseous lesion. There is no abnormal bone marrow edema. There is disk desiccation from C2-C3 to C6-C7. The spinal cord is normal in caliber. The spinal cord is normal in signal. C2-C3 : There is a 1 mm central disk/osteophyte protrusion without spinal canal stenosis. There is severe left facet arthropathy and bilateral uncovertebral hypertrophy causing moderate left without right foraminal stenosis. C3-C4 : There is a 2 mm circumferential disk osteophyte complex with mild to moderate spinal canal s tenosis. There is moderate left and moderate facet arthropathy and bilateral uncovertebral hypertrop hy causing mild to moderate left without right foraminal stenosis. C4-C5 : There is a 1 mm circumferential disk osteophyte complex with mild to moderate spinal canal s tenosis. There is mild bilateral facet arthropathy and bilateral uncovertebral hypertrophy causing moderate to severe left with moderate foraminal stenosis. This likely affects the exiting left C5 n erve root. C5-C6 : There is moderate disk space narrowing. There is a 2 mm circumferential disk osteophyte com plex mildly indenting the spinal cord with moderate spinal canal stenosis. There is mild bilateral facet arthropathy and bilateral uncovertebral hypertrophy causing severe left with moderate severe r ight foraminal stenosis. This affects the exiting bilateral C6 nerve roots. C6-C7 : There is a 2 mm circumferential disk osteophyte complex without spinal canal stenosis. Ther e is moderate bilateral facet arthropathy and bilateral uncovertebral hypertrophy causing mild to mo derate left with mild right foraminal stenosis. C7-T1 : There is no disk herniation or spinal canal stenosis. There is moderate bilateral facet art hropathy with mild to moderate left without right foraminal stenosis. The paravertebral musculature are within normal limits. There is a 1 cm right thyroid nodule. IMPRESSION: 1. Multilevel bilateral foraminal stenosis affecting the exiting left C5 and bilateral C6 nerve root s as detailed above. 2. Multilevel spinal canal stenosis most pronounced at C5-C6 were there is a circumferential disk os teophyte complex mildly indenting the spinal cord with moderate spinal canal stenosis. 3. No abnormal bone marrow edema. 4. There is 1 cm right thyroid nodule. Ultrasound of the thyroid is recommended as well as correlat ion with serum chemistries. Tissue sampling may be performed given size as clinically warranted. Further findings as detailed above. RPTAT: PP .Sunny Lou MD, MD Date Time Electronically viewed and signed by .Sunny Lou MD, on 06/06/2017 07:23 .F/
--- NOTE | 2017-06-06 07:48 | RADRPT ---
PROCEDURE: MR Thoracic Spine noncontrast. CLINICAL INDICATION: Back pain. TECHNIQUE: Multiplanar multisequence noncontrast MRI of the thoracic spine performed. COMPARISON: There are no similar studies submitted for comparison. FINDINGS: There is preservation of the normal thoracic kyphosis. There is a large Schmorl's node within the anterior superior T12 endplate with minimal chronic compr ession deformity. Otherwise vertebral body heights are maintained. There is normal alignment. There is no destructive osseous lesion.There is no abnormal bone marrow edema. There is multilevel disk desiccation multilevel minimal disk space narrowing. The spinal cord is normal is signal. T1-T2: There is no disk herniation, spinal canal, or bilateral foraminal stenosis. T2-T3: There is a 1 mm broad-based disk bulge without spinal canal or bilateral foraminal stenosis. T3-T4: There is a 1 mm broad-based disk bulge without spinal canal or bilateral foraminal stenosis. T4-T5: There is a 1 mm broad-based disk bulge without spinal canal or bilateral foraminal stenosis. T5-T6: There is a 1 mm broad-based disk bulge without spinal canal or bilateral foraminal stenosis. T6-T7: There is a 1 mm broad-based disk bulge without spinal canal or bilateral foraminal stenosis. T7-T8: There is no disk herniation, spinal canal, or bilateral foraminal stenosis. There is mild bi lateral facet arthropathy. T8-T9: There is no disk herniation, spinal canal, or bilateral foraminal stenosis. There is mild bi lateral facet arthropathy. T9-T10: There is a 1 mm broad-based disk bulge without spinal canal or bilateral foraminal stenosis. T10-T11: There is a 1 mm broad-based disk bulge and mild bilateral facet arthropathy without spinal canal or bilateral foraminal stenosis. T11-T12: There is no disk herniation, spinal canal, or bilateral foraminal stenosis. There is mild b ilateral facet arthropathy. T12-L1: There is no disk herniation, spinal canal, or bilateral foraminal stenosis. There is mild bi lateral facet arthropathy. The paraspinal musculature are within normal limits. IMPRESSION: 1. No acute compression fracture or abnormal bone marrow edema. 2. Mild multilevel disk bulges without spinal canal or bilateral foraminal stenosis. 3. Large anterior superior T12 endplate Schmorl's node with minimal chronic compression deformity. Further findings as detailed above. RPTAT: PP .Sunny Lou MD, Date Time Electronically viewed and signed by .Sunny Lou MD, on 06/06/2017 07:48 .F/
--- NOTE | 2017-06-06 07:59 | RADRPT ---
PROCEDURE: MR Lumbar Spine without contrast. CLINICAL INDICATION: Numbness. TECHNIQUE: Multiplanar multisequence MRI of the lumbar spine was performed. COMPARISON: No similar studies are submitted for comparison. FINDINGS: There is a normal lumbar lordosis. The vertebral body heights are maintained. There is no destructive osseous lesion. There is no abnormal bone marrow edema. There is disk desiccation from L2-L3 to L5-S1. The conus medullaris is at the mid L1 level. The cauda equina is unremarkable. There is a filar lipoma measuring up to 2 mm in width from the mid L2 to the L3-L4 levels. T12-L1 : There is no disc herniation or spinal canal stenosis. There is mild bilateral facet arthro jessica without bilateral foraminal stenosis. L1-L2 : There is no disc herniation or spinal canal stenosis. There is mild bilateral facet arthrop athy without bilateral foraminal stenosis. L2-L3 : There is mild disk space narrowing. There is trace retrolisthesis with a 1 mm broad-based d isk bulge and mild bilateral facet arthropathy without spinal canal stenosis. There is no bilateral foraminal stenosis. L3-L4 : There is a 1 mm broad-based disk bulge with moderate by facet arthropathy and ligamentum fla vum infolding without spinal canal stenosis. There is no bilateral foraminal stenosis. L4-L5 : There is a 2 mm broad-based disk bulge with moderate bilateral facet arthropathy and ligamen lonny flavum infolding without spinal canal stenosis. There is mild to moderate right with mild left foraminal stenosis. L5-S1 : There is a 1 mm circumferential disk bulge with moderate bilateral facet arthropathy without spinal canal stenosis. There is mild to moderate bilateral foraminal stenosis. The paraspinal musculature are within normal limits. IMPRESSION: 1. L4-L5 broad-based disk bulge with mild to moderate right and mild left foraminal stenosis. 2. L5-S1 minimal circumferential disk bulge with mild to moderate bilateral foraminal stenosis. 3. No acute compression fracture or abnormal bone marrow edema. Further findings as detailed above. RPTAT: PP .Sunny Lou MD, MD Date Time Electronically viewed and signed by .Sunny Lou MD, MD on 06/06/2017 07:59 .F/
[2017-06-06] MEDS: INSULIN GLARGINE [LANtus] 3 ML PEN SC SCH (08:43)
[2017-06-06] MEDS: INSULIN ASPART [NOVOLOG] 3 ML PEN SC SCH ×2 (08:43→12:12)
[2017-06-06] MEDS: FAMOTIDINE 20 MG TAB PO SCH (08:44)
[2017-06-06] MEDS: FISH OIL 1,000 MG CAP PO SCH (08:44)
[2017-06-06] MEDS: CALCIUM/VITAMIN D (500/200) TAB PO SCH (08:44)
[2017-06-06] MEDS: FERROUS SULFATE (EC) 325 MG TAB PO SCH (08:44)
[2017-06-06] MEDS: NIFEdipine (XL) 30 MG TAB PO SCH (08:45)
[2017-06-06] MEDS: ASPIRIN 81 MG TAB PO SCH (08:45)
[2017-06-06] MEDS: ALLOPURINOL 100 MG TAB PO SCH (08:47)
[2017-06-06 08:49] LABS: CALCIUM 8.5 mg/dl (8.4-10.2); CREATININE 1.18 mg/dl (0.44-1.00); POTASSIUM 4.2 mmol/L (3.5-5.1)
--- NOTE | 2017-06-06 15:22 | PN ---
Date/Time of Note Date/Time of Note DATE: 06/06/17 TIME: 15:11 Assessment/Plan VTE Prophylaxis VTE Prophylaxis Intervention: ambulation, SCD's Lines/Catheters IV [facility]ter [facility]from [facility]): Peripheral IV Urinary Cath still in place: No Assessment/Plan Assessment/Plan 67-year-old female with: 1. Extremity weakness upper and lower, questionable gait issues, old small left cerebellar infarct on CAT scan of the head and also confirmed on MRI. No other acute findings. Patient back to baseline post hydration. TSH, free T4 within normal with a 1 cm thyroid nodule noted on MRI cervical spine, patient will be referred to her primary care physician for thyroid ultrasound and possible biopsy if needed. Continue aspirin, statins, blood pressure control, blood glucose control Continue physical therapy with home health PT, patient has a walker at home. 2. Diabetes mellitus: A1c 7.1, resume home regimen at discharge. 3. 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 DC IV fluids, electrolytes stable, renal function back to baseline. 4. Hypertension: Continue outpatient medications 5. Hyperlipidemia: Continue statin. 6. Chronic anemia: Stable H&H, continue iron sulfate supplements. 7. Morbid obesity: Lifestyle modification Prophylaxis: Pepcid for GI prophylaxis, SCDs for DVT prophylaxis Disposition: Discharge home today with home health PT, outpatient thyroid ultrasound to follow-up on 1 cm thyroid nodule, to be ordered through primary care physician and further biopsy if needed Subjective 24 Hr Interval Summary Free Text/Dictation Patient doing well, she is rehydrated, strength at baseline, she has a walker at home, home health PT ordered, MRIs with no acute findings. She does have an old left cerebellar CVA and the patient is apparently aware. Exam/Review of Systems Vital Signs Vitals Vital Signs Date Time Temp Pulse Resp B/P Pulse Ox O2 Delivery O2 Flow Rate FiO2 06/06/17 12:31 69 06/06/17 11:52 98.2 20 134/62 97 06/05/17 04:00 Room Air Intake and Output 06/05/17 06/05/17 06/06/17 15:00 23:00 07:00 Intake Total 1300 ml 500 ml Balance 1300 ml 500 ml Exam Constitutional: alert, obese, oriented, well developed Respiratory: clear to auscultation, normal air movement Cardiovascular: nl pulses, regular rate and rhythm Gastrointestinal: non-tender, soft Musculoskeletal: nl extremities to inspection, nl gait and stance Extremities: normal pulses Neurological: [employer]DS II-XII intact, nl mental status, nl speech, nl strength Results Result Diagram: 06/05/17 0637 06/06/17 0721 Results 24 hrs Laboratory Tests Test 06/05/17 16:55 06/05/17 20:22 06/06/17 01:53 06/06/17 07:21 Bedside Glucose 251 H 283 H 246 H Sodium Level 145 H Potassium Level 4.2 Chloride Level 107 Carbon Dioxide Level 27 Anion Gap 15 Blood Urea Nitrogen 26 H Creatinine 1.18 H Glucose Level 178 Calcium Level 8.5 Magnesium Level 2.3 # Test 06/06/17 08:41 06/06/17 11:59 Bedside Glucose 184 215 Medications Medications Current Medications Diagnostic Test (Pha) (Accu-Chek) 1 ea 02 XX Last administered on 06/06/17 01: 56; Admin Dose 1 EA; Start 06/04/17 at 02:00 Acetaminophen (Tylenol Tab) 650 mg Q4H PRN PO pain/fever Last administered on 08:44; Admin Dose 650 MG; Start 06/04/17 at 02:00 Ondansetron HCl (Zofran Inj) 4 mg Q4H PRN IV nausea; Start 06/04/17 at 02:00 Morphine Sulfate (morphine) 2 mg Q2H PRN IV pain; Start 06/04/17 at 02:00 Allopurinol (Zyloprim) 100 mg DAILY PO Last administered on 06/06/17 08:47; Admin Dose 100 MG; Start 06/04/17 at 09:00 Aspirin (Aspirin) 81 mg DAILY PO Last administered on 06/06/17 08:45; Admin Dose 81 MG; Start 06/04/17 at 09:00 Atorvastatin Calcium (Lipitor) 40 mg HS PO Last administered on 06/05/17 20:24 ; Admin Dose 40 MG; Start 06/04/17 at 21:00 Calcium/Vitamin D (Oyster Shell/ Vit-D (500/200)) 1 tab DAILY PO Last administered on 06/06/17 08:44; Admin Dose 1 TAB; Start 06/04/17 at 09:00 Ferrous Sulfate (Ferrous Sulfate (Ec)) 325 mg DAILY PO Last administered on 08:44; Admin Dose 325 MG; Start 06/04/17 at 09:00 Fish Oil (Fish Oil) 1,000 mg BID PO Last administered on 06/06/17 08:44; Admin Dose 1,000 MG; Start 06/04/17 at 09:00 Nifedipine (Procardia Xl) 30 mg DAILY PO Last administered on 06/06/17 08:45; Admin Dose 30 MG; Start 06/04/17 at 09:00 Miscellaneous Information 1 ea NOTE XX ; Start 06/04/17 at 02:30 Glucose (Glutose) 15 gm Q15M PRN PO DECREASED GLUCOSE; Start 06/04/17 at 02:30 Glucose (Glutose) 22.5 gm Q15M PRN PO DECREASED GLUCOSE; Start 06/04/17 at 02:30 Dextrose (D50w Syringe) 25 ml Q15M PRN IV DECREASED GLUCOSE; Start 06/04/17 at 02:30 Dextrose (D50w Syringe) 50 ml Q15M PRN IV DECREASED GLUCOSE; Start 06/04/17 at 02:30 Glucagon (Glucagen) 1 mg Q15M PRN IM DECREASED GLUCOSE; Start 06/04/17 at 02:30 Glucose (Glutose) 15 gm Q15M PRN BUCCAL DECREASED GLUCOSE; Start 06/04/17 at 02: 30 Insulin Glargine (Lantus) 24 unit DAILY SC Last administered on 06/06/17 08:43 ; Admin Dose 24 UNIT; Start 06/04/17 at 08:00 Famotidine (Pepcid) 20 mg DAILY PO Last administered on 06/06/17 08:44; Admin Dose 20 MG; Start 06/04/17 at 16:00 IVIS MIN Jun 06, 2017 15:22
--- NOTE | 2017-06-06 15:23 | PDOCDIS ---
Discharge Instructions CONDITION Patient Condition: Good HOME CARE INSTRUCTIONS: Special Diet: CARB CONTROLLED ACTIVITY: Activity Restrictions: Slowly Increase Activity FOLLOW UP/APPOINTMENTS Follow-up Plan Follow-up with his primary care physician within 1 week Outpatient thyroid ultrasound to follow-up 1 cm thyroid nodules, to be ordered by primary care physician. Follow-up with outpatient jewelry sorter as needed. Patient is advised to avoid potassium rich medications, and hydrate to avoid episodes of acute kidney injury IVIS MIN Jun 06, 2017 15:23
== END 2017-06-06 16:50 | disposition home health service (06) ==
LOC: E/R 17:19 → MS4 06-04 02:02
PROVIDERS: ADMIT Legal Medicine; ATTEND Legal Medicine
DX: R53.1 Weakness (principal); E11.22 Type 2 diabetes mellitus with diabetic chronic kidney disease; N18.3 Chronic kidney disease, stage 3 (moderate); I12.9 Hypertensive chronic kidney disease with stage 1 through stage 4 chronic kidney disease, or unspecified chronic kidney disease; E78.5 Hyperlipidemia, unspecified; D64.89 Other specified anemias; E66.01 Morbid (severe) obesity due to excess calories; Z68.41 Body mass index [BMI] 40.0-44.9, adult; Z87.891 Personal history of nicotine dependence; Z86.73 Personal history of transient ischemic attack (TIA), and cerebral infarction without residual deficits; I67.2 Cerebral atherosclerosis
CPT/HCPCS: 70450; 70551; 71010; 72141; 72146; 72148; 80048; 80053; 80061; 81001; 81003; 82962; 83036; 83605; 83735; 84100; 84155; 84300; 84439; 84443; 84484; 85025; 85610; 85730; 93005; 97116; 97162; 97530; 99285; G0378; J1815; J3475

== ENCOUNTER 2018-01-17 12:57 | Emergency (ER) | END 2018-01-17 15:59 | disposition home or self-care (01) ==

== ENCOUNTER 2018-01-19 09:26 | Inpatient (IN) | END 2018-01-20 12:45 | disposition home or self-care (01) | DRG 872 ==

== ENCOUNTER 2018-02-05 12:29 | Emergency (ER) | END 2018-02-05 14:35 | disposition home or self-care (01) ==